=== PATIENT | male | born 1990 | race Caucasian/White ===

== ENCOUNTER 2022-05-20 16:51 | Emergency (ER) | payer MEDICAID, OTHER ==
[~2022-05-20] VITALS: Ht 165.1 cm; Wt 91.0 kg
[2022-05-20] MEDS ORDERED: DEXAMETHASONE 10 MG/ML VIAL IM ONE (23:00)
[2022-05-20] MEDS ORDERED: OXYCODONE HCL/ACETAMINOPHEN 5/325MG TABLET PO ONE (23:00)
[2022-05-20] MEDS ORDERED: KETOROLAC 30MG/ML VIAL IM ONE (23:00)
[2022-05-21] MEDS ORDERED: CYCL5TAB MT (00:31)
[2022-05-21] MEDS ORDERED: LIDO700A15 TP (00:32)
[2022-05-21] MEDS ORDERED: NAP5EC MT (00:32)
[2022-05-21 00:53] VITALS: BP 102/56
== END 2022-05-21 00:50 | disposition home or self-care (01) ==
LOC: ER 16:51
DX: M54.50 Low back pain, unspecified (principal); M41.9 Scoliosis, unspecified; F12.10 Cannabis abuse, uncomplicated; Z87.828 Personal history of other (healed) physical injury and trauma; Z74.01 Bed confinement status
CPT/HCPCS: 96372; 99284; J1100; J1885